=== PATIENT | female | born 1965 | race Hispanic/Latino ===

== ENCOUNTER 2017-01-01 00:17 | Emergency (ER) | payer SELFPAY ==
[2017-01-01 00:56] VITALS: BP 114/69
--- NOTE | 2017-01-01 01:53 | XRay Report ---
FINAL REPORT EXAM: XR ANKLE 3 LT HISTORY: injury, pain COMPARISON: Left foot from the same date. FINDINGS: Three views of the left ankle obtained. Ankle mortise is preserved. No acute fracture dislocation. IMPRESSION: No acute bony abnormality.
--- NOTE | 2017-01-01 01:53 | XRay Report ---
FINAL REPORT EXAM: XR FOOT 3 LT HISTORY: injury, pain COMPARISON: None available. FINDINGS: Three views of the left foot obtained. Mild bunion formation. Cystic change at the medial margin the 1st metatarsal head. Bony structures are intact. Joint spaces are preserved. No acute fracture dislocation. IMPRESSION: No acute bony abnormality.
[2017-01-01] MEDS ORDERED: MOTRIN PO ONE (03:38)
--- NOTE | 2017-01-01 03:39 | Emergency Department Report ---
ED Lower Extremity HPI - General Chief Complaint: Extremity Injury, Lower Stated Complaint: LEFT ANKLE PAIN Time Seen by Provider: 01/01/17 03:29 Source: patient, EMS Mode of arrival: Wheelchair Limitations: No Limitations - History of Present Illness Initial Comments: This is a 51-year-old female that presents with left ankle pain and swelling s/ p twisting while walking on a curb outside yesterday. Patient describes pain as aching with a level of 7/10. Patient stated is able to put limited weight on ankle due to pain. Pt denies loss of consciousness, numbness, tingling, fever, chills, head trauma, headache, stiff neck, abdominal pain, fever, chills. Patient denies joint swelling or joint pain or joint redness. History of spinal stenosis but no other significant past medical history. Denies any drugs allergies. MD Complaint: ankle injury -: Gradual, days(s) (1) Injury: Ankle: Left Type of Injury: inversion Place: street/outdoors Severity: moderate Severity scale (0 -10): 7 Improves With: nothing Worsens With: nothing Context: walking Associated Symptoms: swelling, able to partially bear weight, ambulatory. denies: snap/pop sensation, numbness, tingling, unable to bear weight - Related Data Previous Rx's Medication Instructions Recorded Last Taken Type Ibuprofen [Motrin 600 MG tab] 600 mg PO Q8H PRN #15 tablet 01/01/17 Unknown Rx Allergies Allergy/AdvReac Type Severity Reaction Status Date / Time No Known Allergies Allergy Unverified 01/01/17 00:55 ED Review of Systems ROS: Stated complaint: LEFT ANKLE PAIN Other details as noted in HPI Constitutional: denies: chills, fever Eyes: denies: eye pain, eye discharge, vision change ENT: denies: ear pain, throat pain Respiratory: denies: cough, shortness of breath, wheezing Cardiovascular: denies: chest pain, palpitations Endocrine: no symptoms reported Gastrointestinal: denies: abdominal pain, nausea, diarrhea Genitourinary: denies: urgency, dysuria, discharge Musculoskeletal: denies: back pain, joint swelling, arthralgia Skin: denies: rash, lesions Neurological: denies: headache, weakness, paresthesias Psychiatric: denies: anxiety, depression Hematological/Lymphatic: denies: easy bleeding, easy bruising ED Past Medical Hx - Past Medical History Additional medical history: spinal stenosis, lung disease, anxiety - Surgical History Additional Surgical History: colon removed, L4, L5, S1, muscle removed from L arm, hysterectomy - Social History Smoking Status: Current Every Day Smoker Substance Use Type: None - Medications Home Medications: Home Medications Medication Instructions Recorded Confirmed Last Taken Type Ibuprofen [Motrin 600 MG tab] 600 mg PO Q8H PRN #15 tablet 01/01/17 Unknown Rx ED Physical Exam - General Limitations: No Limitations General appearance: alert, in no apparent distress - Head Head exam: Present: atraumatic, normocephalic, normal inspection - Eye Eye exam: Present: normal appearance, PERRL, EOMI. Absent: scleral icterus, conjunctival injection, nystagmus, periorbital swelling, periorbital tenderness Pupils: Present: normal accommodation - ENT ENT exam: Present: normal exam, normal orophraynx, mucous membranes moist, TM's normal bilaterally, normal external ear exam - Neck Neck exam: Present: normal inspection, full ROM. Absent: tenderness, meningismus, lymphadenopathy, thyromegaly - Respiratory Respiratory exam: Present: normal lung sounds bilaterally. Absent: respiratory distress, wheezes, rales, rhonchi, stridor - Cardiovascular Cardiovascular Exam: Present: regular rate, normal rhythm, normal heart sounds. Absent: bradycardia, tachycardia, irregular rhythm, systolic murmur, diastolic murmur, rubs, gallop - GI/Abdominal GI/Abdominal exam: Present: soft, normal bowel sounds. Absent: distended, tenderness, guarding, rebound, rigid - Rectal Rectal exam: Present: deferred - Extremities Exam Extremities exam: Present: normal inspection, full ROM, normal capillary refill. Absent: tenderness, pedal edema, joint swelling, calf tenderness - Expanded Lower Extremity Exam Left Hip exam: Present: normal inspection, full ROM. Absent: tenderness, swelling, abrasion Upper Leg exam: Present: normal inspection, full ROM. Absent: tenderness, swelling, abrasion, laceration, ecchymosis, deformity, crepidus, dislocation, erythema Knee exam: Present: normal inspection, full ROM, full knee extension. Absent: tenderness, swelling, abrasion, laceration, ecchymosis, deformity, crepidus, dislocation, erythema, effusion, posterior draw sign, pain/laxity with valgus, pain/laxity with varus Lower Leg exam: Present: normal inspection, full ROM. Absent: tenderness, swelling, abrasion, laceration, ecchymosis, deformity, crepidus, dislocation, erythema, palpable cord, Alcon's sign Ankle exam: Present: normal inspection, full ROM, tenderness, swelling. Absent : abrasion, laceration, ecchymosis, deformity, crepidus, erythema, anterior draw sign Foot/Toe exam: Present: normal inspection, full ROM. Absent: tenderness, swelling, abrasion, laceration, ecchymosis, deformity, crepidus, dislocation, erythema, amputation, puncture wound, foreign body, calcaneal tenderness, tenderness at base of 5th metatarsal, nail avulsion, subungual hematoma Neuro vascular tendon exam: Present: no vascular compromise Gait: Positive: observed and limited by pain 1 - tenderness with swelling - Back Exam Back exam: Present: normal inspection, full ROM. Absent: tenderness, CVA tenderness (R), CVA tenderness (L), muscle spasm, paraspinal tenderness, vertebral tenderness, rash noted - Neurological Exam Neurological exam: Present: alert, oriented X3, CN II-XII intact, normal gait ( with pain), reflexes normal - Psychiatric Psychiatric exam: Present: normal affect, normal mood - Skin Skin exam: Present: warm, dry, intact, normal color. Absent: rash ED Course Vital Signs 01/01/17 00:51 Temperature 98.2 F Pulse Rate 90 Respiratory 18 Rate Blood Pressure 114/69 O2 Sat by Pulse 100 Oximetry ED Lower Extremity MDM - Medical Decision Making Ed course: This is a 51-year-old that presents with ankle strain 1- Xr of foot/ankle has been obtained with normal findigs and no fx. 2- pt received ibuprofen 600 mg by mouth, discharge 3- patient received ibuprofen 800 mg by mouth in the ED. 4- patient received ankle stirrup splint and crutches at discharge 5- at the time of discharge the patient does not seem toxic or ill in appearance. No signs of distress noted. Patient agrees to discharge treatment plan. No further questions noted by the patient. 6- Patient was instructed to follow-up with an orthopedic doctor in 3-5 days. Critical care attestation.: If time is entered above; I have spent that time in minutes in the direct care of this critically ill patient, excluding procedure time. ED Disposition Clinical Impression: Left ankle strain Qualifiers: Encounter type: initial encounter Qualified Code(s): S96.912A - Strain of unspecified muscle and tendon at ankle and foot level, left foot, initial encounter Disposition: TO HOME OR SELFCARE Is pt being admited?: No Does the pt Need Aspirin: No Condition: Stable Instructions: Ankle Stirrup Splint (ED), Crutch Instructions (ED), Ibuprofen ( By mouth) Additional Instructions: Follow-up with an orthopedic doctor in 3-5 days. Take ibuprofen as prescribed as needed. Prescriptions: Ibuprofen [Motrin 600 MG tab] 600 mg PO Q8H PRN #15 tablet PRN Reason: Pain Referrals: PRIMARY CARE, [Primary Care Provider] - 3-5 Days VALENTE CUNNINGHAM MD [Staff Physician] - 3-5 Days [facility] [Outside] - 3-5 Days [facility] [Outside] - 3-5 Days
== END 2017-01-01 04:37 | disposition home or self-care (01) ==
LOC: ED 00:17
DX: S96.912A Strain of unspecified muscle and tendon at ankle and foot level, left foot, initial encounter (principal); F17.200 Nicotine dependence, unspecified, uncomplicated; X58.XXXA Exposure to other specified factors, initial encounter; Y93.9 Activity, unspecified; Y92.9 Unspecified place or not applicable; Y99.9 Unspecified external cause status
CPT/HCPCS: 99284

== ENCOUNTER 2017-09-14 16:37 | Emergency (ER) | payer MEDICARE ==
[2017-09-14 18:38] LABS: Basophils # (Auto) 0.1 K/mm3 (0.0-0.1); Basophils % (Auto) 1.1 % (0.0-1.8); Eosinophils # (Auto) 0.1 K/mm3 (0.0-0.4); Eosinophils % (Auto) 1.6 % (0.0-4.3); Hematocrit 36.4 % (30.3-42.9); Hemoglobin 12.4 gm/dl (10.1-14.3); Lymphocytes # (Auto) 1.7 K/mm3 (1.2-5.4); Lymphocytes % (Auto) 25.8 % (13.4-35.0); Mean Corpuscular HGB Conc 34 % (30-34); Mean Corpuscular Hemoglobin 32 pg (28-32); Mean Corpuscular Volume 94 fl (79-97); Monocytes # (Auto) 0.7 K/mm3 (0.0-0.8); Monocytes % (Auto) 10.4 % (0.0-7.3); Platelet Count 282 K/mm3 (140-440); Red Blood Count 3.87 M/mm3 (3.65-5.03); Red Cell Distribution Width 13.1 % (13.2-15.2)
[2017-09-14 18:53] LABS: Albumin 3.6 g/dL (3.9-5); Calcium 8.5 mg/dL (8.4-10.2)
--- NOTE | 2017-09-14 19:55 | XRay Report ---
FINAL REPORT EXAM: XR SHOULDER 2+V RT HISTORY: posible bone infection/LARGE RED BUMP ON UPPER ARM/SWELLING TECHNIQUE: AP, Y, and oblique views of the right shoulder PRIORS: None. FINDINGS: There is no evidence of acute fracture or dislocation. Joint spaces are maintained and bony mineralization is normal. There is extensive soft tissue swelling lateral to the humeral head. IMPRESSION: No acute bony abnormality identified in the right shoulder. Extensive soft tissue swelling lateral to the humeral head.
[2017-09-15] MEDS ORDERED: MORPHINE IM ONE ×2 (01:54→03:06)
[2017-09-15] MEDS ORDERED: BACTRIM DS PO ONE (01:56)
[2017-09-15] MEDS ORDERED: ZOFRAN ODT PO ONE (01:56)
[2017-09-15] MEDS ORDERED: KEFLEX PO ONE (01:56)
[2017-09-15] MEDS ORDERED: XYLOCAINE 2% INFILTRATI ONE (02:58)
--- NOTE | 2017-09-15 05:52 | Emergency Department Report ---
HPI - General Chief Complaint: Wound/Laceration Time Seen by Provider: 09/15/17 01:53 - HPI HPI: The patient is a 52-year-old female presents for evaluation of right arm pain. The patient reports constant and severe right arm pain for the past 4 days, 10/ 10 in severity, throbbing in quality, exacerbated with movement of the right arm at the shoulder joint. She reports associated swelling and redness as well. She says that she has a history of abscess to the left arm. She denies penetrating injury, axillary pain,, chest pain, dyspnea, fever, chills, night sweats, paresthesias, motor deficit. ED Past Medical Hx - Past Medical History Additional medical history: spinal stenosis, lung disease, anxiety - Surgical History Additional Surgical History: colon removed, L4, L5, S1, muscle removed from L arm, hysterectomy - Social History Smoking Status: Current Every Day Smoker Substance Use Type: None - Medications Home Medications: Home Medications Medication Instructions Recorded Confirmed Last Taken Type Ibuprofen [Motrin 600 MG tab] 600 mg PO Q8H PRN #15 tablet 01/01/17 Unknown Rx Cephalexin [Keflex] 500 mg PO QID #40 capsule 09/15/17 Unknown Rx HYDROcodone/APAP 7.5-325 [[place] 1 each PO Q8HR PRN #10 tablet 09/15/17 Unknown Rx 7.5-325 mg TAB] Ibuprofen [Motrin] 800 mg PO Q8HR PRN #15 tablet 09/15/17 Unknown Rx Sulfamethoxazole/Trimethoprim 1 each PO BID #20 tablet 09/15/17 Unknown Rx [Bactrim DS TAB] ED Review of Systems ROS: Stated complaint: ABCESS Other details as noted in HPI Constitutional: denies: fever ENT: denies: throat or neck pain Respiratory: denies: cough, shortness of breath Cardiovascular: denies: chest pain Endocrine: denies unexplained weight loss or gain Gastrointestinal: denies: abdominal pain, nausea Genitourinary: denies: dysuria Musculoskeletal: reports arm pain denies: leg swelling Skin: denies: rash Neurological: denies: headache Hematological/Lymphatic: denies: easy bleeding or easy bruising Psych: denies sadness or hopelessness Physical Exam - Physical Exam Vital Signs: Vital Signs 09/14/17 09/15/17 09/15/17 17:36 02:11 02:26 Temperature 98.8 F 98.6 F Pulse Rate 103 H 86 Respiratory 18 18 Rate Blood Pressure 118/91 Blood Pressure 99/59 [Left] O2 Sat by Pulse 100 97 97 Oximetry 09/15/17 04:48 Temperature Pulse Rate Respiratory 18 Rate Blood Pressure Blood Pressure [Left] O2 Sat by Pulse Oximetry Physical Exam: General: well-nourished, well-developed, no acute distress Head: Normocephalic, atraumatic Eyes: normal sclera ENT: Mucous membranes are pink and moist Neck: trachea midline, neck supple, No neck stiffness, no cervical adenopathy Respiratory: Breath sounds equal bilaterally, no wheezing, rales, or rhonchi Cardio: S1 and S2 present, no murmurs, rubs, gallops, capillary refill is brisk Abdomen: Normoactive bowel sounds, soft abdomen, no rigidity, no guarding or rebound tenderness Musc: 5 cm x 5 cm area of erythema, warmth, fluctuance, and swelling present to the lateral aspect of the proximal right arm, lateral to the humeral head, sensation, motor function and pulses intact in the distal right arm, No pitting edema Skin: No rash Neuro: no facial drooping, normal speech Psych: Normal affect ED Course Vital Signs 09/14/17 09/15/17 09/15/17 17:36 02:11 02:26 Temperature 98.8 F 98.6 F Pulse Rate 103 H 86 Respiratory 18 18 Rate Blood Pressure 118/91 Blood Pressure 99/59 [Left] O2 Sat by Pulse 100 97 97 Oximetry 09/15/17 04:48 Temperature Pulse Rate Respiratory 18 Rate Blood Pressure Blood Pressure [Left] O2 Sat by Pulse Oximetry - I & D Right Upper Lateral Proximal Arm Type of Procedure: Simple Site: right upper arm Blade Size: 11 I & D Procedure: betadine prep, sterile drapes applied, gauze wick placed Progress: 50cc of purulent fluid drained ED Medical Decision Making - Lab Data Result diagrams: 09/14/17 18:15 09/14/17 18:15 - Medical Decision Making The patient was seen and examined by myself. The patient is placed on a director of cardiac cath lab and continuous pulse ox. On initial evaluation, the patient was found to be in no distress. Evaluation orders were placed. The patient is given IM morphine for her pain. Lab was also reassuring including normal WBC. X-ray of the right shoulder is negative for findings concerning for osteomyelitis or septic arthritis. Incision and drainage was performed successfully. The patient's wound was irrigated and packed with iodoform gauze. The patient was given Bactrim and Keflex for treatment of cellulitis. The patient was reevaluated and reported that their symptoms were markedly improved. The patient is stable for discharge with outpatient follow-up. The patient is given follow-up and return instructions. The patient expressed understanding and agreed with the plan. The patient is discharged in stable condition. Critical care attestation.: If time is entered above; I have spent that time in minutes in the direct care of this critically ill patient, excluding procedure time. ED Disposition Clinical Impression: Abscess of right upper extremity, Cellulitis and abscess of upper arm and forearm Disposition: TO HOME OR SELFCARE Is pt being admited?: No Does the pt Need Aspirin: No Condition: Stable Instructions: Cellulitis (ED), Abscess (ED) Prescriptions: Cephalexin [Keflex] 500 mg PO QID #40 capsule HYDROcodone/APAP 7.5-325 [[place] 7.5-325 mg TAB] 1 each PO Q8HR PRN #10 tablet PRN Reason: Pain Ibuprofen [Motrin] 800 mg PO Q8HR PRN #15 tablet PRN Reason: Pain Sulfamethoxazole/Trimethoprim [Bactrim DS TAB] 1 each PO BID #20 tablet Referrals: RAMOS GAGNON MD [Primary Care Provider] - 3-5 Days Time of Disposition: 05:50
[2017-09-15] MEDS ORDERED: NORCO 5/325 PO ONE (06:10)
[2017-09-15 06:24] VITALS: BP 106/78
== END 2017-09-15 06:24 | disposition home or self-care (01) ==
LOC: ED 16:37
DX: L02.413 Cutaneous abscess of right upper limb (principal); L03.113 Cellulitis of right upper limb; F17.200 Nicotine dependence, unspecified, uncomplicated
CPT/HCPCS: 10060; 36415; 73030; 80053; 82140; 85025; 87040; 87076; 87116; 87186; 96372; 99284; J2270; Q0162